=== PATIENT | female | born 1965 | race Caucasian/White ===

== ENCOUNTER → 2021-09-23 | Day surgery (SDC) | payer MEDICARE, OTHER ==
[~2021-09-23] MED LIST: ATIVAN0.5 MG PO; BACLOFEN10 MG PO; BUPIVACAINE 0.25% 30ML SDV ONE; BUSPIRONE HCL5 MG PO; CENTRUM ADULTS1 EACH PO; CRANBERRY CONC500 MG PO; DEXAMETHASONE SOD PHOS INJ 4 MG/ML SDV ONE; DICYCLOMINE HCL20 MG PO; GILENYA0.5 MG PO; IMITREX100 MG PO; LIDOCAINE HCL 2% LOCAL INJ 5 ML SDV VIAL INJ ONE; LYRICA100 MG PO; MEDROL4 MG PO; MELOXICAM7.5 MG PO; METHADONE HCL5 MG PO; NITROFURANTOIN50 MG PO; ONDANSETRON HCL INJ 2MG/ML 2ML 2 MG/ML VIAL ONE; ONDANSETRON ODT8 MG PO; PANTOPRAZOLE SO40 MG PO; POVIDONE IODINE 0.05% 0.05 % ML PO ONE; PROPOFOL IV EMULSION 10 MG/ML 20 ML VIAL ONE; SEROQUEL100 MG PO; SEVOFLURANE INHAL SOLN 250 ML PEN BTL ONE; SUCRALFATE1 GM PO; TRAZODONE HCL100 MG PO; VITAMIN D3 PO
[2021-09-23 07:55] VITALS: BP 120/67
== END | disposition home or self-care (01) ==
LOC: OR 07:53
PROVIDERS: ATTEND Podiatrist Foot & Ankle Surgery
DX: S92.511A Displaced fracture of proximal phalanx of right lesser toe(s), initial encounter for closed fracture (principal); M20.41 Other hammer toe(s) (acquired), right foot; G35 Multiple sclerosis; N39.0 Urinary tract infection, site not specified; K21.9 Gastro-esophageal reflux disease without esophagitis; K28.9 Gastrojejunal ulcer, unspecified as acute or chronic, without hemorrhage or perforation; K58.9 Irritable bowel syndrome, unspecified; K44.9 Diaphragmatic hernia without obstruction or gangrene; K57.90 Diverticulosis of intestine, part unspecified, without perforation or abscess without bleeding; F41.9 Anxiety disorder, unspecified; F32.A Depression, unspecified; X58.XXXA Exposure to other specified factors, initial encounter; Z88.6 Allergy status to analgesic agent; Z88.1 Allergy status to other antibiotic agents; Z88.2 Allergy status to sulfonamides; Z01.810 Encounter for preprocedural cardiovascular examination; Z01.812 Encounter for preprocedural laboratory examination; Z01.818 Encounter for other preprocedural examination; Z20.822 Contact with and (suspected) exposure to COVID-19; Z79.899 Other long term (current) drug therapy
CPT/HCPCS: 0223U; 28285; 36415; 71046; 93005; C1713; J0690; J1100; J2001; J2405